=== PATIENT | male | born 1960 | race Caucasian/White ===

== ENCOUNTER 2023-10-17 11:26 | Outpatient (CLI) | payer OTHER, SELFPAY ==
--- NOTE | ~2023-10-17 | PE_ITS ---
EXAMINATION: PET_PETPSMAST_PT DATE: 10/17/2023 15:15 INDICATION: Malignant neoplasm of prostate. TECHNIQUE: 5.401 mCi of Ga-68 gozetotide was administered intravenously. Low dose computed tomography (CT) images were acquired from the base of the brain to the proximal thighs for attenuation correcti on and anatomic localization. Automated exposure control was employed. Dose-length product (DLP) was 528 mGy-cm. Positron emission tomography (PET) images were acquired in the same distribution. COMPARISON: None FINDINGS: Head/neck: There are no pathologically enlarged lymph nodes. Chest: There is an aberrant right subclavian artery. There is no pneumonia or pleural effusion. The h eart is normal. No pericardial effusion. There are no pathologically enlarged lymph nodes. Abdomen/pelvis/proximal thighs: The liver, gallbladder, spleen, pancreas, adrenal glands, and right k idney are normal. There is 11 mm cyst in left kidney. There are no dilated loops of bowel. The prosta te is mildly enlarged. There is focal increased activity in the prostate on the left with maximum SUV of 16.7. There are bilateral inguinal hernias containing fat. There are no pathologically enlarged l ymph nodes. There is no free intraperitoneal fluid. There is no osseous metastatic disease. IMPRESSION: 1. Mildly enlarged prostate with focal increased activity on the left, consistent with primary malign rigo. No evidence of metastatic disease. Reviewed, dictated and finalized at location A. IMPRESSION: 1. Mildly enlarged prostate with focal increased activity on the left, consiste nt with primary malignancy. No evidence of metastatic disease.
== END 2023-10-17 11:27 | disposition home or self-care (01) ==
PROVIDERS: Visit Provider Urology
DX: C61 Malignant neoplasm of prostate (principal)
CPT/HCPCS: 78815; A9596